=== PATIENT | female | born 1980 ===

== ENCOUNTER 2022-08-12 10:26 | Inpatient (IN) ==
--- NOTE | 2022-08-12 10:33 | Emergency Department Note ---
HPI General Chief complaint: Alcohol Stated complaint: Flank Pain Time Seen by Provider: 08/12/22 10:29 Source: patient Mode of arrival: wheelchair Limitations: no limitations History of Present Illness HPI Narrative: Narrative: Patient is a 42-year-old female with no significant past medical history who presents to the emergency department due to concern for alcohol withdrawal. She states that approximately a year ago she began to split with her , and at that time began to drink heavily. She states around she tried to decrease, she was drinking, but that she began to have shakes and to feel unwell, and then started to drink more again. She states that since Tuesday she has decreased the amount that she has been drinking, and has had 8 shots in total. Her sister has been trying to help her to taper how much she is drinking, and will give her shots when she begins to feel unwell or if shaking, and tried to help her to "sleep it off." She states that it has just begun to be too much, so decided to come to the emergency department. She endorses shaking, visual, auditory, and tactile hallucinations, urinary urgency, and foul-smelling urine. She denies any other symptoms at this time. Related Data Allergies Allergy/AdvReac Type Severity Reaction Status Date / Time No Known Drug Allergies Allergy Verified 08/12/22 10:31 Review of Systems ROS ROS Narrative: Narrative: Constitutional: Denies fever or weakness Eyes: Denies eye pain or vision change ENT ED: Denies throat pain or rhinorrhea Cardiovascular: Denies chest pain, dyspnea on exertion, orthopnea or edema Respiratory: Denies shortness of breath or cough Gastrointestinal: Denies abdominal pain, nausea, vomiting, diarrhea, constipation, hematochezia or melena Musculoskeletal: Denies back pain or myalgia Integumentary: Denies rash or lesions Neurological: Denies headache, weakness, numbness, confusion, abnormal gait or dizziness Endocrine: Denies fatigue or polyuria PFSH Narrative Patient History Narrative: Narrative: Medical/Surgical/Family History All Active Problems (Updated 08/12/22 @ 13:24 by Adam Jay MD) Alcohol withdrawal syndrome (Acute) Social History Smoking Status: Never smoker Exam Narrative Narrative: Narrative: General Limitations: no limitations General appearance: Present alert and in no apparent distress; Absent anxious, appears intoxicated or sleepy Head Head: Present atraumatic and normocephalic Eye Eye: Present EOMI; Absent scleral icterus or nystagmus ENT ENT: Present mucous membranes moist; Absent nasal congestion Neck Neck: Present full ROM; Absent tenderness Chest Chest: Present normal inspection and symmetric chest wall rise; Absent tenderness Respiratory Respiratory: Present normal lung sounds bilaterally; Absent respiratory distress or accessory muscle use Cardiovascular Cardiovascular: Present normal rhythm, tachycardia and normal heart sounds Adbominal Abdominal: Present soft and normal bowel sounds; Absent distention or tenderness Extremities Extremities: Present normal inspection and full ROM; Absent pedal edema or pretibial edema Back Back: Present normal inspection and full ROM Neurological Neurological: Present alert, oriented X3 and other (Tremors); Absent motor sensory deficit Psychiatric Psychiatric: Present normal affect and normal mood Skin Skin: Present warm (WNL), dry and normal color Course Vital Signs Vital signs: Vital Signs Temperature 98.0 F 08/12/22 10:28 Pulse Rate 122 H 08/12/22 10:28 Respiratory Rate 18 08/12/22 10:28 Blood Pressure 124/76 08/12/22 10:28 Pulse Oximetry (%) 96 08/12/22 10:28 Oxygen Delivery Method Room Air 08/12/22 10:28 Temperature 98.0 F 08/12/22 10:28 Pulse Rate 87 08/12/22 12:01 Respiratory Rate 13 08/12/22 13:01 Blood Pressure 111/68 08/12/22 13:01 Pulse Oximetry (%) 98 08/12/22 12:01 Oxygen Delivery Method Room Air 08/12/22 10:28 [facility] MDM Narrative Medical decision making narrative: Narrative: Patient is a 42-year-old female with a history of large amount of alcohol use who presents to the emergency department due to concern for withdrawal. Patient does have tremors and symptoms concerning for alcohol withdrawal and potentially delirium tremens. Given concern for significant withdrawal and desire to quit drinking alcohol I believe that she will need to be observed for a period of time. Because of her significant alcohol use she is receiving a banana bag. She also has been given Ativan with improvement in symptoms, although she does continue to have some tremor. Her tachycardia did resolve with Ativan though. I have spoken to Dr. Lopez and has agreed to see and evaluate patient for admission. Lab Data 08/12/22 10:46 08/12/22 10:46 Labs: Lab Results 08/12/22 08/12/22 08/12/22 Range/Units 10:46 10:46 10:46 WBC 3.9 L (4.5-11.0) K/mcL RBC 3.83 (3.59-5.38) M/mcL Hgb 12.4 (11.2-15.7) g/dL Hct 37.5 (34.1-44.9) % MCV 97.9 (80.0-100.0) fL MCH 32.4 (26.0-34.0) pg MCHC 33.1 (31.0-36.0) g/dL RDW 12.6 (11.5-14.5) % Plt Count 74 L (140-440) K/mcL MPV 9.8 (8.8-12.5) fL Immature Gran % (Auto) 0.3 (0.0-0.5) % Neut % (Auto) 59.5 (38.0-78.0) % Lymph % (Auto) 25.7 (15.5-49.0) % Towns % (Auto) 11.9 (1.0-12.0) % Eos % (Auto) 2.1 (0.0-7.0) % Baso % (Auto) 0.5 (0.0-2.0) % Lymph # (Auto) 0.99 L (1.50-4.80) K/mcL Towns # (Auto) 0.46 (0.10-0.90) K/mcL Eos # (Auto) 0.08 (0.00-0.70) K/mcL Baso # (Auto) 0.02 (0.00-0.30) K/mcL Immature Gran # 0.01 (0.00-0.05) K/mcl Absolute Neutrophils 2.29 (1.80-8.00) K/mcL Sodium 136 (133-145) mmol/L Potassium 3.6 (3.3-5.1) mmol/L Chloride 95 L (96-108) mmol/L Carbon Dioxide 28 (22-30) mmol/L Anion Gap 13.0 (8.0-16.0) BUN 17 (6-20) mg/dL Creatinine 0.6 (0.6-1.1) mg/dL GFR Calculation 113 Glucose 108 H (70-105) mg/dL Calcium 9.5 (8.6-10.4) mg/dL Total Bilirubin 2.2 H (0.1-1.0) mg/dL AST 249 H (<32) U/L ALT 146 H (<40) U/L Alkaline Phosphatase 85 (39-117) U/L Total Protein 7.3 (5.9-8.4) gm/dL Albumin 4.4 (3.2-5.2) gm/dL Globulin 2.9 (2.2-3.7) gm/dL Albumin/Globulin Ratio 1.5 (1.0-2.3) Ethyl Alcohol mg/dL < 10.0 mg/dL Ethyl Alcohol g/dL < 0.010 (<0.010) gm/dL EKG Data EKG #1: EKG attestation: Yes I reviewed and interpreted this EKG. EKG results narrative: Normal sinus rhythm with a rate of 89, normal axis, LA of 139, QRS of 93, QTc of 474, T wave flattening in leads III and aVF, and absence of ST elevation or depression. Discharge Plan Patient/Caregiver Discharge Instructions Pt seen by [facility]/PA only: No Clinical Impression: Alcohol withdrawal syndrome Patient Disposition: Xfer As Inpt ([facility]) Follow up with: Lincoln Valdez MD [Referring] -
[2022-08-12] MEDS ORDERED: LORazepam 2 MG/ML VIAL IV ONE (10:46)
[2022-08-12] MEDS ORDERED: LACTATED RINGERS 1,000 ML IV ONE (10:46)
[2022-08-12] MEDS ORDERED: POTASSIUM CHLORIDE 20 MEQ, MAGNESIUM SULFATE 16.24 MEQ, THIAMINE 100 MG, MVI, ADULT NO.... IV SCH (11:15)
[2022-08-12 11:54] LABS: Alcohol, Blood < 10.0 mg/dL; Alcohol,Blood < 0.010 gm/dL (<0.010)
[2022-08-12 11:58] LABS: ALT/SGPT 146 U/L (<40); AST/SGOT 249 U/L (<32); Albumin 4.4 gm/dL (3.2-5.2); Albumin/Globulin Ratio 1.5 (1.0-2.3); Alkaline Phosphatase 85 U/L (39-117); Bilirubin,Total 2.2 mg/dL (0.1-1.0); Blood Urea Nitrogen 17 mg/dL (6-20); Calcium 9.5 mg/dL (8.6-10.4); Carbon Dioxide 28 mmol/L (22-30); Chloride 95 mmol/L (96-108); Globulin 2.9 gm/dL (2.2-3.7); Glomerular Filtration Rate 113; Glucose 108 mg/dL (70-105)
[2022-08-12 12:05] LABS: Basophils # (Auto) 0.02 K/mcL (0.00-0.30); Basophils % (Auto) 0.5 % (0.0-2.0); Eosinophils # (Auto) 0.08 K/mcL (0.00-0.70); Eosinophils % (Auto) 2.1 % (0.0-7.0); Hematocrit 37.5 % (34.1-44.9); Hemoglobin 12.4 g/dL (11.2-15.7); Lymphocytes # (Auto) 0.99 K/mcL (1.50-4.80); Lymphocytes % (Auto) 25.7 % (15.5-49.0); Mean Cell Volume 97.9 fL (80.0-100.0); Mean Corpuscular HGB Conc 33.1 g/dL (31.0-36.0); Mean Platelet Volume 9.8 fL (8.8-12.5); Monocytes # (Auto) 0.46 K/mcL (0.10-0.90); Monocytes % (Auto) 11.9 % (1.0-12.0); Neutrophils % (Auto) 59.5 % (38.0-78.0); Platelet Count 74 K/mcL (140-440); RBC 3.83 M/mcL (3.59-5.38); Red Cell Distribution Width 12.6 % (11.5-14.5); WBC 3.9 K/mcL (4.5-11.0)
[2022-08-12] MEDS ORDERED: DIAZEPAM 10 MG/2 ML SYRINGE IV PRN (12:10)
[2022-08-12 14:08] LABS: Prothrombin Time 13.4 sec (11.9-14.5)
--- NOTE | 2022-08-12 14:25 | Internal Med History&Physical ---
HPI History of Present Illness Patient information: Note initiated : 08/12/22 at 2:14 pm Service Date, if different from initiated Date: [] Patient: Annemarie Hernandez a 42 y/o F admitted on for alcohol . Chief Complaint: [] History of present illness: Ms. Hernandez is a 42 year old F Presents to the ED with alcohol withdrawal. Patient has been drinking 1/5 of liquor per day and is trying to taper off several times as well as lately. She has become extremely tremulous and hallucinating and agitated. Sounds like she started drinking again pretty heavily about a year ago when she spoke with her . And since she has been decreasing her amount since Tuesday she has been getting worse. She complains of shaking and dark urine and auditory and visual hallucinations. She is also complained of fevers and chills. In the ED she was tachycardic. She had elevated bilirubin and AST and ALT. She was leukopenic and thrombocytopenic. Patient was started on banana bag and Ativan. She also has a history of anxiety depression. Review of Systems: Pertinent positives as above. Denies headache/nausea/vomiting/chest or abdominal pain/cough/dyspnea/diarrhea. Remaining 10 point review of system reviewed negative PHYSICAL EXAM: General: Alert, Awake, mild acute Distress Eyes/N/T: EOMI, PERRL, dry MM Head/Neck: neck supple, full ROM, normocephalic atraumatic CV: Tacky but regular, No murmurs, normal s1/s2 Pulm: Clear b/l, no wheezing/rhonchi/rales, no respiratory distress Abd: soft, nontender, +BS x4 Ext: no clubbing/cyanosis/edema, nontender Neuro: Tremuous, Alert, no focal deficits, moves all extremities, CN 2-12 grossly intact, sensations intact b/l upper/lower Psychiatric: Skin: warm/dry, normal color . PFSH PFSH All Active Problems (Updated 08/12/22 @ 13:24 by Adam Jay MD) Alcohol withdrawal syndrome (Acute) Social History smoking status: Former smoker MEDS/ALLERGIES Home Medications and Allergies Home Medications Medication Instructions Recorded Confirmed Type L.acidophil-L.casei-B.bifid-B.longum-FOS 1 cap PO DAILY 08/12/22 08/12/22 History 2 billion cell-50 mg capsule (Probiotic Blend) buprenorphine 8 mg-naloxone 2 mg 1 tab sublingual Q6H 08/12/22 08/12/22 History sublingual tablet cholecalciferol (vitamin D3) 25 1,000 unit PO DAILY 08/12/22 08/12/22 History mcg (1,000 unit) capsule (Vitamin D3) clonazepam 0.5 mg tablet 1 mg PO BIDP PRN Alcohol Withdrawal 08/12/22 08/12/22 History escitalopram oxalate 10 mg tablet 10 mg PO QDAY 08/12/22 08/12/22 History multivitamin with minerals-folic 1 tab PO DAILY 08/12/22 08/12/22 History acid 0.4 mg tablet Allergies Allergy/AdvReac Type Severity Reaction Status Date / Time No Known Drug Allergies Allergy Verified 08/12/22 10:31 EXAM Constitutional Vitals: Temp Pulse Resp BP Pulse Ox O2 Del Method 98.0 F 87 11 L 110/73 98 Room Air 08/12/22 10:28 08/12/22 12:01 08/12/22 13:31 08/12/22 13:31 08/12/22 12:01 08/12/22 10:28 DATA Data Completed and Pending Labs: Labs from last 24 hours 08/12/22 08/12/22 08/12/22 13:23 10:46 10:46 WBC RBC Hgb Hct MCV MCH MCHC RDW Plt Count MPV Immature Gran % (Auto) Neut % (Auto) Lymph % (Auto) Logan % (Auto) Eos % (Auto) Baso % (Auto) Lymph # (Auto) Logan # (Auto) Eos # (Auto) Baso # (Auto) Immature Gran # Absolute Neutrophils PT 13.4 INR 1.0 Sodium 136 Potassium 3.6 Chloride 95 L Carbon Dioxide 28 Anion Gap 13.0 BUN 17 Creatinine 0.6 GFR Calculation 113 Glucose 108 H Calcium 9.5 Total Bilirubin 2.2 H AST 249 H ALT 146 H Alkaline Phosphatase 85 Total Protein 7.3 Albumin 4.4 Globulin 2.9 Albumin/Globulin Ratio 1.5 Ethyl Alcohol mg/dL < 10.0 Ethyl Alcohol g/dL < 0.010 08/12/22 10:46 WBC 3.9 L RBC 3.83 Hgb 12.4 Hct 37.5 MCV 97.9 MCH 32.4 MCHC 33.1 RDW 12.6 Plt Count 74 L MPV 9.8 Immature Gran % (Auto) 0.3 Neut % (Auto) 59.5 Lymph % (Auto) 25.7 Logan % (Auto) 11.9 Eos % (Auto) 2.1 Baso % (Auto) 0.5 Lymph # (Auto) 0.99 L Logan # (Auto) 0.46 Eos # (Auto) 0.08 Baso # (Auto) 0.02 Immature Gran # 0.01 Absolute Neutrophils 2.29 PT INR Sodium Potassium Chloride Carbon Dioxide Anion Gap BUN Creatinine GFR Calculation Glucose Calcium Total Bilirubin AST ALT Alkaline Phosphatase Total Protein Albumin Globulin Albumin/Globulin Ratio Ethyl Alcohol mg/dL Ethyl Alcohol g/dL A/P Narrative A/P Narrative: A: *EtOH w/d with hallucinations: *etoh abuse: *Alcoholic hepatitis: dsc fxn <32 *Fatty Liver: *Hyperbilirubinemia: 2/2 above *UTI: *Anxiety/depression *Vaping *Leukopenia/Thrombocytopenia: 2/2 alcoholic toxic effect *Hypochloridemia: 2/2 alcohol abuse P: -ciwa, prn benzo -mineral/vitamins -IVF, monitor uop -monitor cbc/chem, check mag -tele -liver u/s, hepatitis screen -Rocephin, pending UC -Home medication reconciliation -Follow-up with Dr. Dixon -ppx: SCD/Ambulation / ppi Time Spent With Patient Time: Total time spent is greater than 50% in coordination of care (as documented) at patient's floor/unit and/or counseling patient: Initial: Total time with patient: 75 - 90 minutes
[2022-08-12 15:31] LABS: Appearance,Urine SL CLOUDY (Clear); Bacteria,Urine MANY /hpf (0); Bilirubin,Urine NEGATIVE (Negative); Color,Urine YELLOW; Culture Indicated,Urine No; Glucose,Urine (UA) NEGATIVE (Negative); Ketones,Urine NEGATIVE (Negative); Leukocyte Esterase,Urine MODERATE /uL (Negative); Mucus,Urine MOD /hpf; Nitrate,Urine Positive (Negative); Protein,Urine TRACE mg/dL (Negative); Specific Gravity,Urine 1.015 (1.000-1.035); Urine Blood NEGATIVE ery/mcL (Negative); Urine RBC 4 /hpf (0-3); Urine Squamous Epithelial Cell 16 /hpf (0-4); Urine Transitional Epi Cells < 1 /hpf (0-2); Urine WBC 129 /hpf (0-4)
[2022-08-12] MEDS ORDERED: SENNOSIDES 1 TABLET PO PRN (15:58)
[2022-08-12] MEDS ORDERED: ONDANSETRON 4 MG/2 ML VIAL IV PRN (15:58)
[2022-08-12] MEDS ORDERED: DEXTROSE 5%-LR 1,000 ML IV SCH (15:58)
[2022-08-12] MEDS ORDERED: POLYETHYLENE GLYCOL 3350 17 GM PACKET PO PRN (15:58)
[2022-08-12] MEDS ORDERED: MAGNESIUM SULFATE 2 GM/50 ML BAG IV PRN (15:58)
[2022-08-12] MEDS ORDERED: METOCLOPRAMIDE 10 MG/2 ML VIAL IV PRN (15:58)
[2022-08-12] MEDS ORDERED: POTASSIUM CHLORIDE 40 MEQ in DEXTROSE 5% IN WATER 500 ML IV PRN (15:58)
[2022-08-12] MEDS ORDERED: POTASSIUM CHLORIDE 20 MEQ TABLET PO PRN ×2 (15:58)
[2022-08-12] MEDS ORDERED: IPRATROPIUM/ALBUTEROL 3 ML AMPUL.NEB NEB PRN (15:58)
[2022-08-12] MEDS: cefTRIAXone 2 GM in DEXTROSE 5% IN WATER 50 ML IV SCH (16:40)
[2022-08-12] MEDS: chlordiazePOXIDE 25 MG CAPSULE PO PRN ×2 (16:40→21:01)
[2022-08-12] MEDS: PANTOPRAZOLE 40 MG TABLET PO SCH (16:40)
[2022-08-12 16:57] LABS: Hepatitis B Surface Antigen Negative (Negative); Hepatitis C Virus Antibody Non-Reactive (Non-Reactive)
--- NOTE | 2022-08-12 18:00 | Ultrasound Report ---
CLINICAL INFORMATION: Elevated LFTs COMPARISON: None. FINDINGS: The liver is normal in size with elevated echotexture compatible fatty change or other diffuse hepatocellular process. No focal hepatic lesion. There is a 3 mm polyp in the gallbladder. Gallbladder otherwise normal no stones identified. Mild is normal at 4 mm. Pancreas is unremarkable. No free fluid. IMPRESSION: Hyperechoic liver compatible with fatty change or other diffuse hepatocellular process. 3 m polyp in the gallbladder. These are very commonly seen and nearly always benign Interpreted and Authenticated by: Rivera Barnett 08/12/22
[2022-08-12] MEDS: LORazepam 2 MG/ML VIAL IV PRN ×2 (18:06→22:27)
[2022-08-12] MEDS: 0.9 % SODIUM CHLORIDE 10 ML SYRINGE IV SCH (20:29)
[2022-08-12] MEDS: BUPRENORPHINE/NALOXONE 4MG/1MG ORAL FILM SL SCH (21:01)
[2022-08-13] MEDS: LORazepam 2 MG/ML VIAL IV PRN ×2 (00:12→02:52)
[2022-08-13] MEDS: chlordiazePOXIDE 25 MG CAPSULE PO PRN ×4 (02:52→20:02)
[2022-08-13] MEDS: 0.9 % SODIUM CHLORIDE 10 ML SYRINGE IV SCH ×3 (05:44→20:03)
[2022-08-13 06:36] LABS: Basophils # (Auto) 0.02 K/mcL (0.00-0.30); Basophils % (Auto) 0.7 % (0.0-2.0); Eosinophils % (Auto) 3.5 % (0.0-7.0); Hematocrit 32.4 % (34.1-44.9); Hemoglobin 10.4 g/dL (11.2-15.7); Lymphocytes # (Auto) 1.11 K/mcL (1.50-4.80); Lymphocytes % (Auto) 39.1 % (15.5-49.0); Mean Cell Volume 101.6 fL (80.0-100.0); Mean Corpuscular HGB Conc 32.1 g/dL (31.0-36.0); Mean Platelet Volume 9.9 fL (8.8-12.5); Monocytes # (Auto) 0.32 K/mcL (0.10-0.90); Monocytes % (Auto) 11.3 % (1.0-12.0); Platelet Count 77 K/mcL (140-440); RBC 3.19 M/mcL (3.59-5.38); Red Cell Distribution Width 12.5 % (11.5-14.5); WBC 2.8 K/mcL (4.5-11.0)
[2022-08-13 06:49] LABS: ALT/SGPT 128 U/L (<40); AST/SGOT 200 U/L (<32); Albumin 3.7 gm/dL (3.2-5.2); Albumin/Globulin Ratio 1.7 (1.0-2.3); Alkaline Phosphatase 67 U/L (39-117); Bilirubin,Direct 0.5 mg/dL (<0.3); Bilirubin,Total 1.1 mg/dL (0.1-1.0); Blood Urea Nitrogen 9 mg/dL (6-20); Calcium 8.7 mg/dL (8.6-10.4); Carbon Dioxide 27 mmol/L (22-30); Chloride 104 mmol/L (96-108); Globulin 2.2 gm/dL (2.2-3.7); Glomerular Filtration Rate 120; Glucose 100 mg/dL (70-105); Lactate Dehydrogenase 221 U/L (135-225); Phosphorous 3.8 mg/dL (2.5-4.5); Triglycerides 45 mg/dL (<150); Uric Acid 2.5 mg/dL (2.5-8.0)
--- NOTE | 2022-08-13 07:34 | EKG ---
[facility] Test Date: 2022-08-12 Pat Name: Annemarie Hernandez Department: ED Room: Gender: Female Health Technician: LR : 1980 Requested By: Adam Jay Order Number: [id number] Reading MD: William Callaway Measurements Intervals [place] Rate: 89 P: -6 LA: 139 QRS: 46 QRSD: 93 T: 19 QT: 389 QTc: 474 Interpretive Statements Sinus rhythm Consider left ventricular hypertrophy Electronically Signed On 08-13-2022 7:33:50 PST by William Callaway /store/M0/[id number]/ecg/[id number].pdf
[2022-08-13] MEDS: PANTOPRAZOLE 40 MG TABLET PO SCH (07:39)
--- NOTE | 2022-08-13 07:58 | Internal Med Progress Note ---
SUBJECTIVE Subjective Patient information: Note initiated : 08/13/22 at 7:54 am Service Date, if different from initiated Date: [] Patient: Annemarie Hernandez a 42 y/o F admitted on 08/12/22 for Alcohol Withdrawal. Chief Complaint: [] Interval history: History of present illness: Ms. Hernandez is a 42 year old F Presents to the ED with alcohol withdrawal. Patient has been drinking 1/5 of liquor per day and is trying to taper off several times as well as lately. She has become extremely tremulous and hallucinating and agitated. Sounds like she started drinking again pretty heavily about a year ago when she spoke with her . And since she has been decreasing her amount since Tuesday she has been getting worse. She complains of shaking and dark urine and auditory and visual hallucinations. She is also complained of fevers and chills. In the ED she was tachycardic. She had elevated bilirubin and AST and ALT. She was leukopenic and thrombocytopenic. Patient was started on banana bag and Ativan. She also has a history of anxiety depression. 08/13 Patient feeling less tremulous this morning. Got Ativan and Librium overnight shift. Librium given this morning. Auditory hallucinations last night no visual. Review of Systems: denies headache/fever/chills/nausea/vomiting/chest or abdominal pain/cough/dyspnea/diarrhea. Otherwise see above. PHYSICAL EXAM: General: Alert, Awake, mild acute Distress Eyes/N/T: EOMI, no scleral icterus, Head/Neck: neck supple, full ROM, CV: RRR, No murmurs, Pulm: Clear b/l, no wheezing/rhonchi/rales, no respiratory distress Abd: soft, nontender, +BS x4 Ext: no clubbing/cyanosis/edema, nontender Neuro: Tremuous, Alert, no focal deficits, moves all extremities, sensations intact b/l upper/lower Psychiatric: Skin: warm/dry, normal color Constitutional Vitals: Vital Signs Temp Pulse Resp BP Pulse Ox O2 Del Method 97.9 F 73 16 104/75 97 Room Air 08/13/22 04:00 08/13/22 06:00 08/13/22 06:00 08/13/22 06:00 08/13/22 06:00 08/12/22 16:09 Period Temp Pulse Resp BP Sys/[place]osta Pulse Ox O2 Del Method O2 Flow Rate Last 24 Hr 97.8 F-98.8 F 69-122 10-24 87-124/63-88 95-100 Room Air-Room Air Intake and Output 08/12/22 08/13/22 08/13/22 19:59 03:59 11:59 Intake Total 2126 1241 Output Total 200 400 Balance 1926 -400 1241 Weight 62.823 kg 63.321 kg Intake & Output: Intake & Output 08/12/22 08/13/22 08/13/22 19:59 03:59 11:59 Intake Total 2126 1241 Output Total 200 400 Balance 1926 -400 1241 Weight 62.823 kg 63.321 kg Intake: IV 2125 941 Dextrose 5%-Lactated Ringers 1, 51 941 000 ml @ 75 mls/hr IV .[id number] [facility] Rx#:[id number] Lactated Ringers 1,000 ml @ 1000 Wide Open IV BOLUS ONE Rx#: [id number] Potassium Chloride 20 Meq 1025 Magnesium Sulfate 16.24 Meq Vitamin B1 100 mg Infuvite Adult 10 ml In Sodium Chloride 0.9% 1,000 ml @ Wide Open IV . Q0M [facility] Rx#:[id number] Rocephin 2 gm In Dextrose 5% in 50 Water 50 ml @ 100 mls/hr IV Q24H [facility] Rx#:[id number] Oral 0 300 Output: Void Amount 200 400 # of times incontinent of urine 0 Other: Meal Dinner Percent of Meal Consumed 50% Urine Appearance Clear Clear Urine Color Dark Kell Dark Yellow Urine Odor Normal # Voids 0 # Bowel Movements 0 OBJ DATA Labs 08/13/22 05:19 08/13/22 05:18 Labs: Abnormal Lab Results 08/13/22 08/13/22 08/12/22 05:19 05:18 14:44 WBC 2.8 L RBC 3.19 L Hgb 10.4 L Hct 32.4 L MCV 101.6 H Plt Count 77 L Lymph # (Auto) 1.11 L Absolute Neutrophils 1.28 L Chloride Anion Gap 7.0 L Creatinine 0.5 L Glucose Total Bilirubin 1.1 H Direct Bilirubin 0.5 H GGT 384 H AST 200 H ALT 128 H Urine Appearance Sl cloudy A Urine Protein Trace A Urine Nitrate Positive A Urine Urobilinogen 4.0 A Ur Leukocyte Esterase Moderate A Urine RBC 4 H Urine WBC 129 H Ur Squamous Epith Cells 16 H Urine Bacteria Many A Urine Mucus Mod A 08/12/22 08/12/22 10:46 10:46 WBC 3.9 L RBC Hgb Hct MCV Plt Count 74 L Lymph # (Auto) 0.99 L Absolute Neutrophils Chloride 95 L Anion Gap Creatinine Glucose 108 H Total Bilirubin 2.2 H Direct Bilirubin GGT AST 249 H ALT 146 H Urine Appearance Urine Protein Urine Nitrate Urine Urobilinogen Ur Leukocyte Esterase Urine RBC Urine WBC Ur Squamous Epith Cells Urine Bacteria Urine Mucus Meds: Medications Acetaminophen (Acetaminophen 325 Mg Tablet) 650 mg PO Q6HP PRN; Protocol PRN Reason: Per Pain Protocol/Fever > 101 Albuterol/Ipratropium (Ipratropium/Albuterol 3 Ml Ampul.Neb) 3 ml NEB Q4HP PRN PRN Reason: Shortness Of Breath Buprenorphine HCl (Buprenorphine/Naloxone 4mg/1mg Oral Film) 2 each SL BID [facility] Last Admin: 08/12/22 21:01 Dose: 2 each Chlordiazepoxide HCl (Chlordiazepoxide 25 Mg Capsule) 25 mg PO UD PRN; Protocol PRN Reason: Alcohol Withdrawal/Assess CIWA Last Admin: 08/13/22 07:39 Dose: 25 mg Escitalopram Oxalate (Escitalopram 10 Mg Tablet) 10 mg PO QDAY [facility] Folic Acid (Folic Acid 1 Mg Tablet) 1 mg PO DAILY [facility] Potassium Chloride 40 meq/ (Dextrose) 520 mls @ 130 mls/hr IV UD PRN PRN Reason: Potassium < 3 Magnesium Sulfate (Magnesium Sulfate) 2 gm in 50 mls @ 50 mls/hr IV UD PRN PRN Reason: Magnesium </= 1.6 Thiamine HCl 100 mg/ Sodium (Chloride) 51 mls @ 50 mls/hr IV DAILY [facility] Ceftriaxone Sodium 2 gm/ (Dextrose) 50 mls @ 100 mls/hr IV Q24H [facility]; Protocol Last Infusion: 08/12/22 17:11 Dose: Infused Iron Carb/Multivit/[place]/Folic Acid (Multivit,Ther Iron,Ca,Fa & Min 1 Tablet) 1 tab PO DAILY [facility] Lorazepam (Lorazepam 2 Mg/Ml Vial) 0 mg IV UD PRN; Protocol PRN Reason: Alcohol Withdrawal/Assess CIWA Last Admin: 02/17/23 02:52 Dose: 1 mg Metoclopramide HCl (Metoclopramide 10 Mg/2 Ml Vial) 10 mg IV Q6HP PRN PRN Reason: Nausea And Vomiting Ondansetron HCl (Ondansetron 4 Mg/2 Ml Vial) 4 mg IV Q4HP PRN PRN Reason: Nausea And Vomiting Pantoprazole Sodium (Pantoprazole 40 Mg Tablet) 40 mg PO QAMAC [facility] Last Admin: 08/13/22 07:39 Dose: 40 mg Polyethylene Glycol (Polyethylene Glycol 3350 17 Gm Packet) 17 gm PO DAILYP PRN PRN Reason: Constipation Potassium Chloride (Potassium Chloride 20 Meq Tablet) 40 meq PO UD PRN PRN Reason: Potssium is 3-3.5 Potassium Chloride (Potassium Chloride 20 Meq Tablet) 40 meq PO UD PRN PRN Reason: Potassium < 3 Senna (Sennosides 1 Tablet) 2 tab PO DAILYP PRN PRN Reason: Constipation Sodium Chloride (0.9 % Sodium Chloride 10 Ml Syringe) 10 ml IV Q8 [facility] Last Admin: 08/13/22 05:44 Dose: 10 ml A/P Narrative A/P Narrative: A: *EtOH w/d with hallucinations: *etoh abuse: *Alcoholic hepatitis: dsc fxn <32 *Fatty Liver: on us, hepatitis neg *Hyperbilirubinemia: 2/2 above *UTI( ): *Anxiety/depression *Vaping *Leukopenia/Thrombocytopenia/anemia: 2/2 alcoholic toxic effect *Hypochloridemia: 2/2 alcohol abuse P: -ciwa, prn benzo -mineral/vitamins -IVF d/c, monitor uop -monitor cbc/chem, check mag -tele -[facility], pending -Follow-up with Dr. Dixon -ppx: lovenox/Ambulation / ppi Time Spent With Patient Time: Total time spent is greater than 50% in coordination of care (as documented) at patient's floor/unit and/or counseling patient: Subsequent: Total time with patient: 50 - 65 Minutes QUALITY VTE Deep Vein Thrombosis/Pulmonary Embolism Present on Admission: No
[2022-08-13] MEDS: ENOXAPARIN 40 MG/0.4 ML SYRINGE SQ SCH (09:28)
[2022-08-13] MEDS: FOLIC ACID 1 MG TABLET PO SCH (09:28)
[2022-08-13] MEDS: THIAMINE 100 MG in 0.9 % SODIUM CHLORIDE 50 ML IV SCH (09:28)
[2022-08-13] MEDS: MULTIVIT,THER IRON,CA,FA & MIN 1 TABLET PO SCH (09:28)
[2022-08-13] MEDS: ESCITALOPRAM 10 MG TABLET PO SCH (09:28)
[2022-08-13] MEDS: BUPRENORPHINE/NALOXONE 4MG/1MG ORAL FILM SL SCH ×2 (09:31→20:02)
[2022-08-13] MEDS: cefTRIAXone 2 GM in DEXTROSE 5% IN WATER 50 ML IV SCH (15:58)
[2022-08-13] MEDS: ACETAMINOPHEN 325 MG TABLET PO PRN (20:02)
[2022-08-14] MEDS: 0.9 % SODIUM CHLORIDE 10 ML SYRINGE IV SCH ×5 (05:35→22:00)
[2022-08-14 06:37] LABS: Basophils # (Auto) 0.02 K/mcL (0.00-0.30); Basophils % (Auto) 0.7 % (0.0-2.0); Eosinophils # (Auto) 0.09 K/mcL (0.00-0.70); Hematocrit 33.7 % (34.1-44.9); Hemoglobin 10.8 g/dL (11.2-15.7); Lymphocytes # (Auto) 1.15 K/mcL (1.50-4.80); Lymphocytes % (Auto) 38.9 % (15.5-49.0); Mean Cell Volume 102.4 fL (80.0-100.0); Mean Platelet Volume 9.5 fL (8.8-12.5); Monocytes # (Auto) 0.35 K/mcL (0.10-0.90); Monocytes % (Auto) 11.8 % (1.0-12.0); Neutrophils % (Auto) 45.3 % (38.0-78.0); Platelet Count 95 K/mcL (140-440); RBC 3.29 M/mcL (3.59-5.38); Red Cell Distribution Width 12.2 % (11.5-14.5)
[2022-08-14 06:43] LABS: Blood Urea Nitrogen 11 mg/dL (6-20); Calcium 8.5 mg/dL (8.6-10.4); Carbon Dioxide 28 mmol/L (22-30); Chloride 103 mmol/L (96-108); Glucose 86 mg/dL (70-105); Phosphorous 3.8 mg/dL (2.5-4.5)
[2022-08-14 06:44] LABS: ALT/SGPT 121 U/L (<40); AST/SGOT 140 U/L (<32); Albumin 3.8 gm/dL (3.2-5.2); Albumin/Globulin Ratio 1.7 (1.0-2.3); Alkaline Phosphatase 70 U/L (39-117); Bilirubin,Direct 0.3 mg/dL (<0.3); Bilirubin,Total 0.7 mg/dL (0.1-1.0); Globulin 2.3 gm/dL (2.2-3.7); Glomerular Filtration Rate 113; Lactate Dehydrogenase 182 U/L (135-225); Triglycerides 46 mg/dL (<150)
[2022-08-14] MEDS: PANTOPRAZOLE 40 MG TABLET PO SCH (07:32)
--- NOTE | 2022-08-14 07:55 | Internal Med Progress Note ---
SUBJECTIVE Subjective Patient information: Note initiated : 08/14/22 at 7:52 am Service Date, if different from initiated Date: [] Patient: Annemarie Hernandez a 42 y/o F admitted on 08/12/22 for Alcohol Withdrawal. Chief Complaint: [] Interval history: History of present illness: Ms. Hernandez is a 42 year old F Presents to the ED with alcohol withdrawal. Patient has been drinking 1/5 of liquor per day and is trying to taper off several times as well as lately. She has become extremely tremulous and hallucinating and agitated. Sounds like she started drinking again pretty heavily about a year ago when she spoke with her . And since she has been decreasing her amount since Tuesday she has been getting worse. She complains of shaking and dark urine and auditory and visual hallucinations. She is also complained of fevers and chills. In the ED she was tachycardic. She had elevated bilirubin and AST and ALT. She was leukopenic and thrombocytopenic. Patient was started on banana bag and Ativan. She also has a history of anxiety depression. 08/13 Patient feeling less tremulous this morning. Got Ativan and Librium overnight shift. Librium given this morning. Auditory hallucinations last night no visual. 08/14 over past 24hrs pt has had CIWA's up to 12. Overall she states she is feeling better, still tremulous. Occasional mild tachycardia. Review of Systems: denies headache/fever/chills/nausea/vomiting/chest or abdominal pain/ cough/dyspnea/diarrhea. Otherwise see above. PHYSICAL EXAM: General: Alert, Awake, no acute Distress Eyes/N/T: EOMI, no scleral icterus, Head/Neck: neck supple, full ROM, CV: RRR, No murmurs, Pulm: Clear b/l, no wheezing/rhonchi/rales, no respiratory distress Abd: soft, nontender, +BS x4 Ext: no clubbing/cyanosis/edema, nontender Neuro: Tremuous, Alert, no focal deficits, moves all extremities, sensations intact b/l upper/lower Psychiatric: Skin: warm/dry, normal color Constitutional Vitals: Vital Signs Temp Pulse Resp BP Pulse Ox O2 Del Method 97.5 F 79 15 107/72 97 Room Air 08/14/22 04:23 08/14/22 06:31 08/14/22 06:31 08/14/22 06:31 08/14/22 06:31 08/13/22 20:00 Period Temp Pulse Resp BP Sys/[place] Pulse Ox O2 Del Method O2 Flow Rate Last 24 Hr 97.5 F-98.7 F 72-102 11-33 95-128/66-90 92-100 Room Air-Room Air Intake and Output 08/13/22 08/14/22 08/14/22 19:59 03:59 11:59 Intake Total 770 Output Total 250 240 400 Balance 520 -240 -400 Weight 63.321 kg 62.913 kg Intake & Output: Intake & Output 08/13/22 08/14/22 08/14/22 19:59 03:59 11:59 Intake Total 770 Output Total 250 240 400 Balance 520 -240 -400 Weight 63.321 kg 62.913 kg Intake: IV 50 Rocephin 2 gm In Dextrose 5% in 50 Water 50 ml @ 100 mls/hr IV Q24H [facility] Rx#:[id number] Oral 720 Output: Void Amount 250 240 400 Other: Meal Lunch Crackers and egg salad Percent of Meal Consumed 50% 50% Feeding Ability Independent Urine Appearance Clear Clear Urine Color Dark Yellow Dark Yellow Dark Yellow Urine Odor Strong OBJ DATA Labs 08/14/22 05:11 08/14/22 05:11 Labs: Abnormal Lab Results 08/14/22 08/14/22 08/13/22 05:11 05:11 05:19 WBC 3.0 L 2.8 L RBC 3.29 L 3.19 L Hgb 10.8 L 10.4 L Hct 33.7 L 32.4 L MCV 102.4 H 101.6 H Plt Count 95 L 77 L Lymph # (Auto) 1.15 L 1.11 L Absolute Neutrophils 1.34 L 1.28 L Chloride Anion Gap Creatinine Glucose Calcium 8.5 L Total Bilirubin Direct Bilirubin 0.3 H GGT 378 H AST 140 H ALT 121 H Urine Appearance Urine Protein Urine Nitrate Urine Urobilinogen Ur Leukocyte Esterase Urine RBC Urine WBC Ur Squamous Epith Cells Urine Bacteria Urine Mucus 08/13/22 08/12/22 08/12/22 05:18 14:44 10:46 WBC RBC Hgb Hct MCV Plt Count Lymph # (Auto) Absolute Neutrophils Chloride 95 L Anion Gap 7.0 L Creatinine 0.5 L Glucose 108 H Calcium Total Bilirubin 1.1 H 2.2 H Direct Bilirubin 0.5 H GGT 384 H AST 200 H 249 H ALT 128 H 146 H Urine Appearance Sl cloudy A Urine Protein Trace A Urine Nitrate Positive A Urine Urobilinogen 4.0 A Ur Leukocyte Esterase Moderate A Urine RBC 4 H Urine WBC 129 H Ur Squamous Epith Cells 16 H Urine Bacteria Many A Urine Mucus Mod A 08/12/22 10:46 WBC 3.9 L RBC Hgb Hct MCV Plt Count 74 L Lymph # (Auto) 0.99 L Absolute Neutrophils Chloride Anion Gap Creatinine Glucose Calcium Total Bilirubin Direct Bilirubin GGT AST ALT Urine Appearance Urine Protein Urine Nitrate Urine Urobilinogen Ur Leukocyte Esterase Urine RBC Urine WBC Ur Squamous Epith Cells Urine Bacteria Urine Mucus Meds: Medications Acetaminophen (Acetaminophen 325 Mg Tablet) 650 mg PO Q6HP PRN; Protocol PRN Reason: Per Pain Protocol/Fever > 101 Last Admin: 08/13/22 20:02 Dose: 650 mg Albuterol/Ipratropium (Ipratropium/Albuterol 3 Ml Ampul.Neb) 3 ml NEB Q4HP PRN PRN Reason: Shortness Of Breath Buprenorphine HCl (Buprenorphine/Naloxone 4mg/1mg Oral Film) 2 each SL BID [facility] Last Admin: 08/13/22 20:02 Dose: 2 each Chlordiazepoxide HCl (Chlordiazepoxide 25 Mg Capsule) 25 mg PO UD PRN; Protocol PRN Reason: Alcohol Withdrawal/Assess CIWA Last Admin: 08/13/22 20:02 Dose: 25 mg Enoxaparin Sodium (Enoxaparin 40 Mg/0.4 Ml Syringe) 40 mg SQ DAILY [facility] Last Admin: 08/13/22 09:28 Dose: 40 mg Escitalopram Oxalate (Escitalopram 10 Mg Tablet) 10 mg PO QDAY [facility] Last Admin: 08/13/22 09:28 Dose: 10 mg Folic Acid (Folic Acid 1 Mg Tablet) 1 mg PO DAILY [facility] Last Admin: 08/13/22 09:28 Dose: 1 mg Potassium Chloride 40 meq/ (Dextrose) 520 mls @ 130 mls/hr IV UD PRN PRN Reason: Potassium < 3 Magnesium Sulfate (Magnesium Sulfate) 2 gm in 50 mls @ 50 mls/hr IV UD PRN PRN Reason: Magnesium </= 1.6 Thiamine HCl 100 mg/ Sodium (Chloride) 51 mls @ 50 mls/hr IV DAILY [facility] Last Infusion: 08/13/22 10:46 Dose: Infused Ceftriaxone Sodium 2 gm/ (Dextrose) 50 mls @ 100 mls/hr IV Q24H [facility]; Protocol Last Infusion: 08/13/22 17:07 Dose: Infused Iron Carb/Multivit/[place]/Folic Acid (Multivit,Ther Iron,Ca,Fa & Min 1 Tablet) 1 tab PO DAILY [facility] Last Admin: 08/13/22 09:28 Dose: 1 tab Lorazepam (Lorazepam 2 Mg/Ml Vial) 0 mg IV UD PRN; Protocol PRN Reason: Alcohol Withdrawal/Assess CIWA Last Admin: 08/13/22 02:52 Dose: 1 mg Metoclopramide HCl (Metoclopramide 10 Mg/2 Ml Vial) 10 mg IV Q6HP PRN PRN Reason: Nausea And Vomiting Ondansetron HCl (Ondansetron 4 Mg/2 Ml Vial) 4 mg IV Q4HP PRN PRN Reason: Nausea And Vomiting Pantoprazole Sodium (Pantoprazole 40 Mg Tablet) 40 mg PO QAMAC [facility] Last Admin: 08/14/22 07:32 Dose: 40 mg Polyethylene Glycol (Polyethylene Glycol 3350 17 Gm Packet) 17 gm PO DAILYP PRN PRN Reason: Constipation Potassium Chloride (Potassium Chloride 20 Meq Tablet) 40 meq PO UD PRN PRN Reason: Potssium is 3-3.5 Potassium Chloride (Potassium Chloride 20 Meq Tablet) 40 meq PO UD PRN PRN Reason: Potassium < 3 Senna (Sennosides 1 Tablet) 2 tab PO DAILYP PRN PRN Reason: Constipation Sodium Chloride (0.9 % Sodium Chloride 10 Ml Syringe) 10 ml IV Q8 [facility] Last Admin: 08/14/22 05:35 Dose: 10 ml A/P Narrative A/P Narrative: A: *EtOH w/d w/hallucinations: *etoh abuse: *Alcoholic hepatitis: dsc fxn <32 -lft's improving *Fatty Liver: on us, hepatitis neg *Hyperbilirubinemia: 2/2 above, imrpoving *UTI( ): *Anxiety/depression *Vaping *Leukopenia/Thrombocytopenia/macrocytic anemia: 2/2 alcoholic toxic effect *Hypochloridemia: 2/2 alcohol use, improving P: -ciwa, prn benzo -mineral/vitamins -IVF d/c, monitor uop -monitor cbc/chem, -tele -b12/folate -Rocephin, pending UC -Follow-up with Dr. Dixon -ppx: lovenox / ppi Time Spent With Patient Time: Total time spent is greater than 50% in coordination of care (as documented) at patient's floor/unit and/or counseling patient: Subsequent: Total time with patient: 50 - 65 Minutes QUALITY VTE Deep Vein Thrombosis/Pulmonary Embolism Present on Admission: No
[2022-08-14] MEDS: THIAMINE 100 MG in 0.9 % SODIUM CHLORIDE 50 ML IV SCH (09:12)
[2022-08-14] MEDS: FOLIC ACID 1 MG TABLET PO SCH (09:12)
[2022-08-14] MEDS: ESCITALOPRAM 10 MG TABLET PO SCH (09:12)
[2022-08-14] MEDS: MULTIVIT,THER IRON,CA,FA & MIN 1 TABLET PO SCH (09:12)
[2022-08-14] MEDS: ENOXAPARIN 40 MG/0.4 ML SYRINGE SQ SCH ×2 (09:12→09:41)
[2022-08-14] MEDS: BUPRENORPHINE/NALOXONE 4MG/1MG ORAL FILM SL SCH ×3 (09:13→19:37)
[2022-08-14] MEDS: clonazePAM 1 MG TABLET PO PRN ×2 (13:41→22:56)
[2022-08-14] MEDS: cefTRIAXone 2 GM in DEXTROSE 5% IN WATER 50 ML IV SCH (15:35)
--- NOTE | 2022-08-14 17:05 | Discharge Summary ---
Discharge Provider Provider IMPORTANT FOLLOW-UP INFORMATION FOR PCP: Patient information: Note initiated : 08/14/22 at 5:04 pm Service Date, if different from initiated Date: [] Patient: Annemarie Hernandez 42 y/o F admitted on 08/12/22 for Alcohol Withdrawal. Chief Complaint: [] Date of admission: 08/12/22 15:57 Discharge date: 08/15/22 Primary care physician: Oren Mendez MD Consults: 08/12/22 Consult to Physician [CONS] Stat Comment: Consulting Provider: Suleman Lopez Reason For Exam: Physician to Consult COURSE Hospital Course Hospital course: History of present illness: Ms. Hernandez is a 42 year old F Presents to the ED with alcohol withdrawal. Patient has been drinking 1/5 of liquor per day and is trying to taper off several times as well as lately. She has become extremely tremulous and hallucinating and agitated. Sounds like she started drinking again pretty heavily about a year ago when she spoke with her . And since she has been decreasing her amount since Tuesday she has been getting worse. She complains of shaking and dark urine and auditory and visual hallucinations. She is also complained of fevers and chills. In the ED she was tachycardic. She had elevated bilirubin and AST and ALT. She was leukopenic and thrombocytopenic. Patient was started on banana bag and Ativan. She also has a history of anxiety depression. 08/13 Patient feeling less tremulous this morning. Got Ativan and Librium overnight shift. Librium given this morning. Auditory hallucinations last night no visual. 08/14 over past 24hrs pt has had CIWA's up to 12. Overall she states she is feeling better, still tremulous. Occasional mild tachycardia. 08/15 Patient doing well. Low CIWA scores. Patient will follow-up with Dr. Dixon. Stable for discharge. A *EtOH w/d w/hallucinations: *etoh abuse: *Alcoholic hepatitis: dsc fxn <32 *Fatty Liver: on us, hepatitis neg *Hyperbilirubinemia: 2/2 above, *UTI(GNB): *Anxiety/depression *Vaping *Leukopenia/Thrombocytopenia/macrocytic anemia: 2/2 alcoholic toxic effect *Hypochloridemia: 2/2 alcohol use, improving P: -f/u with Dr. Dixon Discharge diagnosis: Alcohol withdrawal alcohol abuse alcoholic hepatitis Secondary discharge diagnosis: Fatty liver hyperbilirubinemia UTI anxiety depression vaping pancytopenia hy perchloremia Time Spent with Patient Time attestation: Total time spent providing and/or coordinating discharge services: Time spent: Greater than 30 minutes EXAM Constitutional Vitals: Temp Pulse Resp BP Pulse Ox O2 Del Method 98.2 F 81 14 112/81 99 Room Air 08/14/22 16:00 08/14/22 15:29 08/14/22 16:00 08/14/22 16:00 08/14/22 16:00 08/14/22 10:01 Discharge Data Data Completed and Pending Labs on day of discharge: Labs from last 24 hours 08/14/22 08/14/22 08/14/22 08:40 08:40 05:11 WBC RBC Hgb Hct MCV MCH MCHC RDW Plt Count MPV Immature Gran % (Auto) Neut % (Auto) Lymph % (Auto) [place] % (Auto) Eos % (Auto) Baso % (Auto) Lymph # (Auto) [place] # (Auto) Eos # (Auto) Baso # (Auto) Immature Gran # Absolute Neutrophils Sodium 140 Potassium 3.6 Chloride 103 Carbon Dioxide 28 Anion Gap 9.0 BUN 11 Creatinine 0.6 GFR Calculation 113 Glucose 86 Uric Acid 3.0 Calcium 8.5 L Phosphorus 3.8 Magnesium 2.1 Total Bilirubin 0.7 Direct Bilirubin 0.3 H GGT 378 H AST 140 H ALT 121 H Alkaline Phosphatase 70 Lactate Dehydrogenase 182 Total Protein 6.1 Albumin 3.8 Globulin 2.3 Albumin/Globulin Ratio 1.7 Triglycerides 46 Vitamin B12 > 2000.0 H Folate 18.3 08/14/22 05:11 WBC 3.0 L RBC 3.29 L Hgb 10.8 L Hct 33.7 L MCV 102.4 H MCH 32.8 MCHC 32.0 RDW 12.2 Plt Count 95 L MPV 9.5 Immature Gran % (Auto) 0.3 Neut % (Auto) 45.3 Lymph % (Auto) 38.9 [place] % (Auto) 11.8 Eos % (Auto) 3.0 Baso % (Auto) 0.7 Lymph # (Auto) 1.15 L [place] # (Auto) 0.35 Eos # (Auto) 0.09 Baso # (Auto) 0.02 Immature Gran # 0.01 Absolute Neutrophils 1.34 L Sodium Potassium Chloride Carbon Dioxide Anion Gap BUN Creatinine GFR Calculation Glucose Uric Acid Calcium Phosphorus Magnesium Total Bilirubin Direct Bilirubin GGT AST ALT Alkaline Phosphatase Lactate Dehydrogenase Total Protein Albumin Globulin Albumin/Globulin Ratio Triglycerides Vitamin B12 Folate Discharge Plan Patient/Caregiver Discharge Instructions Activity: increase activity as tolerated Diet: Regular Diet Activity Restrictions/Additional Instructions: Follow-up with PCP in 3 to [address] Dixon for alcohol use disorder 1-2 weeks. Prescriptions: Continued clonazepam 0.5 mg tablet 1 mg PO BIDP PRN (Reason: Alcohol Withdrawal) cholecalciferol (vitamin D3) [Vitamin D3] 25 mcg (1,000 unit) Capsule 1,000 unit PO DAILY escitalopram oxalate 10 mg tablet 10 mg PO QDAY buprenorphine-naloxone 8-2 mg tablet, sublingual 1 tab sublingual Q6H Rx Instructions: Take as needed, up to 16 mg daily multivit with min-folic acid 0.4 mg Tablet 1 tab PO DAILY Probiotic Blend 2 billion cell-50 mg Capsule 1 cap PO DAILY Follow Up Plan Patient Disposition: Home, Self-Care Prognosis: Fair Overall status at discharge: patient is progressing back to baseline Discharge Orders: Discharge Order (Routine); Ordered 08/15/22 Ordered By: Suleman Lopez [facility] VTE Deep Vein Thrombosis/Pulmonary Embolism Present on Admission: No
[2022-08-14] MEDS: ACETAMINOPHEN 325 MG TABLET PO PRN (19:37)
[2022-08-15] MEDS: 0.9 % SODIUM CHLORIDE 10 ML SYRINGE IV SCH ×2 (06:24→09:07)
[2022-08-15] MEDS: PANTOPRAZOLE 40 MG TABLET PO SCH (08:05)
[2022-08-15] MEDS: ENOXAPARIN 40 MG/0.4 ML SYRINGE SQ SCH (08:41)
[2022-08-15] MEDS: BUPRENORPHINE/NALOXONE 4MG/1MG ORAL FILM SL SCH (09:05)
[2022-08-15] MEDS: THIAMINE 100 MG in 0.9 % SODIUM CHLORIDE 50 ML IV SCH (09:06)
[2022-08-15] MEDS: FOLIC ACID 1 MG TABLET PO SCH (09:07)
[2022-08-15] MEDS: clonazePAM 1 MG TABLET PO PRN (09:07)
[2022-08-15] MEDS: ESCITALOPRAM 10 MG TABLET PO SCH (09:07)
[2022-08-15] MEDS: MULTIVIT,THER IRON,CA,FA & MIN 1 TABLET PO SCH (09:07)
== END 2022-08-15 11:00 | disposition home or self-care (01) | DRG 897 ==
LOC: ED 10:26 → ICU 15:57
PROVIDERS: ADMIT Internal Medicine; ATTEND Internal Medicine